=== PATIENT | male | born 2000 | race Caucasian/White ===

== ENCOUNTER 2024-05-15 17:56 | Emergency (ER) | payer BC, SELFPAY ==
[2024-05-15 18:13] VITALS: BMI 35.6
[2024-05-15 18:14] VITALS: BP 145/82; PULSE 81; RESP 17; TEMP 37.1; O2SAT 95
--- NOTE | 2024-05-15 18:28 | XR_ITS ---
Examination: PA lateral chest 2 views TECHNIQUE: Upright PA and lateral chest 2 views Exam date and time: May 15, 2024 1844 hours INDICATIONS: Chest pain and coughing today. FINDINGS: Normal heart size Mild elevation right hemidiaphragm. No pneumonia or pulmonary edema. The osseous structures are intact IMPRESSION: No active disease.
--- NOTE | 2024-05-15 18:30 | PD.EDRME ---
Rapid Medical Screening Exam E Arrival date/time: 05/15/24 17:56 24-year-old male no significant past medical history presents emergency department complaining of cough, fever, shortness of breath, and nausea for over 10 days. Patient reports recently completed oral antibiotic treatment. Patient reports sick contact similar symptoms. Chief Complaint: Shortness of Breath/Dyspnea Time Seen by Provider: 05/15/24 18:05 Vital signs: Vital Signs Temperature 98.7 F 05/15/24 18:14 Pulse Rate 81 05/15/24 18:14 Respiratory Rate 17 05/15/24 18:14 Blood Pressure 145/82 H 05/15/24 18:14 Pulse Oximetry (%) 95 05/15/24 18:14 Oxygen Delivery Method Room Air 05/15/24 18:14 Vital signs reviewed by provider: Yes
[2024-05-15 19:20] LABS: Strep A Rapid Negative (Negative)
--- NOTE | 2024-05-15 19:29 | EDNOTE_ITS ---
Upper Respiratory Inf. RME/HPI General Chief Complaint: Shortness of Breath/Dyspnea Stated Complaint: Fever, SOB, cough, nausea X 12 days Time Seen by Provider: 05/15/24 18:05 Source: patient Arrival date/time: 05/15/24 17:56 24-year-old male no significant past medical history presents emergency department complaining of cough, fever, shortness of breath, and nausea for over 10 days. Patient reports recently completed oral antibiotic treatment. Patient reports sick contact similar symptoms. Mode of arrival: ambulatory Limitations: no limitations RME / HPI RME / HPI Narrative: 05/15/24 17:56 24-year-old male no significant past medical history presents emergency department complaining of cough, fever, shortness of breath, and nausea for over 10 days. Patient reports recently completed oral antibiotic treatment. Patient reports sick contact similar symptoms. Related Data Previous Rx's ?Medication ?Instructions ?Recorded acetaminophen 500 mg capsule 500 mg PO Q6H PRN pain #3 0 caps 05/15/24 albuterol sulfate 90 mcg/actuation 2 puff inhalation Q 6H PRN 05/15/24 aerosol inhaler (Ventolin HFA) shortness of breath or wheezing #6.7 grams ibuprofen 600 mg tablet 600 mg PO Q8H PRN pain #20 t abs 05/15/24 Allergies Allergy/AdvReac Type Severity Reaction Status Date / Time NKA* Allergy Uncoded 12/20/22 09:38 Review of Systems Review of Systems Systems Reviewed: All systems reviewed, normal except as documented Constitutional Constitutional: Reports system reviewed and no additional complaints, except as documented, Denies body ache(s), Denies chills and Reports fever(s) Eyes Eyes: Reports system reviewed and no additional complaints, except as documented and Denies change in vision ENT Ears, Nose, Mouth, and Throat: Reports system reviewed and no additional complaints, except as documented, Denies disequilibrium, Denies dizziness, Denies sore throat and Denies vertigo Cardiovascular Cardiovascular: Reports system reviewed and no additional complaints, except as documented, Denies chest pain and Reports dyspnea Respiratory Respiratory: Reports system reviewed and no additional complaints, except as documented, Denies chest congestion, Reports cough and Reports dyspnea Gastrointestinal Gastrointestinal: Reports system reviewed and no additional complaints, except as documented, Denies abdominal pain, Reports nausea and Denies vomiting Musculoskeletal Musculoskeletal: Reports system reviewed and no additional complaints, except as documented, Denies abnormal gait and Denies arthralgias Integumentary/Breasts Skin/Breast: Reports system reviewed and no additional complaints, except as documented, Denies erythema, Denies rash and Denies wounds Neurologic Neurologic: Reports system reviewed and no additional complaints, except as documented, Denies abnormal gait, Denies disequilibrium, Denies dizziness and Denies vertigo Past Medical History Social History SMOKING STATUS: Former smoker SECOND HAND EXPOSURE: No ED Exam General Limitations: Present no limitations General appearance: Present alert and in no apparent distress Head Head exam: Present atraumatic Eye Eye exam: Present normal appearance, PERRL and EOMI ENT ENT exam: Present normal exam, normal oropharynx and mucous membranes moist Neck Neck exam: Present normal inspection, full ROM and trachea midline Chest Chest inspection: Present normal inspection and symmetric chest wall rise Respiratory Respiratory exam: Present normal lung sounds bilaterally; Absent respiratory distress or wheezes Cardiovascular Cardiovascular exam: Present regular rate, normal rhythm and normal heart sounds Abdominal Exam Abdominal exam: Present soft and normal bowel sounds Extremities Exam Extremities exam: Present normal inspection and full ROM Back Exam Back exam: Present normal inspection and full ROM Neurological Exam Neurological exam: Present alert, oriented X3 and CN II-XII intact Psychiatric Psychiatric exam: Present normal affect and normal mood Skin Skin exam: Present warm, dry, intact and normal color Course Quality Measures none Orders Category Date Time Status Bedside Influenza A&B Antigen Test NOW Care 05/15/24 18:28 Completed XR chest 2V Stat Exams 05/15/24 18:28 Completed Strep A Rapid Stat Lab 05/15/24 18:56 Completed Vital Signs Vital signs: Vital Signs Temperature 98.7 F 05/15/24 18:14 Pulse Rate 81 05/15/24 18:14 Respiratory Rate 17 05/15/24 18:14 Blood Pressure 145/82 H 05/15/24 18:14 Pulse Oximetry (%) 95 05/15/24 18:14 Oxygen Delivery Method Room Air 05/15/24 18:14 95% room air within normal limits Upper Respiratory Infection MDM Narrative MDM Narrative:: 24-year-old male no significant past medical history presents emergency department complaining of cough, fever, shortness of breath, and nausea for over 10 days. Patient reports recently completed oral antibiotic treatment. Patient reports sick contact similar symptoms. No adventitious lung sounds on auscultation. Chest x-ray was unremarkable. Abdomen is soft and nontender. Influenza positive likely the cause of patient's symptoms. Onset greater than 48 hours. Patient stable for discharge instructed to follow-up with primary care provider and return to emergency department for any worsening symptoms or as needed. Patient data External records reviewed:: [facility] previous records Clinical information provided by:: patient Social determinants that could affect healthcare access:: none Patient has the following chronic illnesses:: None How is presenting disease/condition affected by chronic disease/condition?: no chronic disease Evaluation data The following diagnostics were reviewed and interpreted by me:: radiology exam(s) Lab and/or radiology exams considered but not ordered:: Ordered Interpretation Summary: Interpreted by me Medications / Prescriptions Medications or Prescriptions considered but not ordered:: N/A Medication administrations:: N/A Consultations Consultation(s) initiated? (list below): No Diagnosis Upper Respiratory Differential Diagnosis: upper respiratory infection, otitis media, sinusitis, viral infection, bronchitis, influenza and pharyngitis Most likely diagnosis given after review of the tests above:: Influenza Admission Indicated Admission indicated?: not indicated Admission Request Was there a request for admission?: No Disposition Plan Disposition Plan: Discharge Discharge Attestation Discharge Attestation: The patient and all family members were given an opportunity to ask questions and understood the discharge instructions. Discharge instructions specifically effects, indications for sooner follow up or return to the emergency department, and the expected course of current diagnosis. Patient condition: Stable Discharge Plan Plan Patient Disposition: HOME (Self Care) Disposition Comment: Stable Prescriptions/Referrals Prescriptions/Med Rec: New acetaminophen 500 mg capsule 500 mg PO Q6H PRN (Reason: pain) Qty: 30 0RF ibuprofen 600 mg tablet 600 mg PO Q8H PRN (Reason: pain) Qty: 20 0RF albuterol sulfate [Ventolin HFA] 90 mcg/actuation HFA aerosol inhaler 2 puff inhalation Q6H PRN (Reason: shortness of breath or wheezing) Qty: 6.7 0RF No Action flu vacc [id number] 6mos up(PF) 60 mcg (15 mcg x 4)/0.5 mL syringe 0.5 ml IM ONCE Qty: 0.5 0RF Referrals: Hussein Hendrix MD [Primary Care Provider] - In 1 week Problem List Clinical Impression: Influenza Patient/Caregiver Discharge Instructions Discharge Activity: activity as tolerated Education Materials: ED Influenza (Adult) Additional Instructions: Drink plenty of fluids and get plenty of rest. Take Tylenol or ibuprofen as needed for fever or pain. Follow-up with primary care provider in 2 to 3 days. Return to emergency department for any worsening symptoms or as needed. Print Language: Mauritian Stand Alone Forms: Linda Award Info., Work/School Release, Patient Portal Info Letter PA/[employer] PLANS INTELLIGENCE OFFICER Supervising Physician PA/[employer]OC PL[employer] INTE[employer]IGENCE OFFICER Supervising Physician: Dr. Vee
[2024-05-15 19:32] VITALS: BP 159/84; PULSE 78; RESP 18; TEMP 37.3; O2SAT 98
== END 2024-05-15 20:43 | disposition home or self-care (01) ==
PROVIDERS: Emergency Provider Emergency Medicine; PCP Family Medicine
DX: J11.1 Influenza due to unidentified influenza virus with other respiratory manifestations (principal)
CPT/HCPCS: 71046; 87400; 87651; 99283

== ENCOUNTER → 2024-05-18 | Outpatient (BNVA) | payer BC, SELFPAY | END | disposition home or self-care (01) | PROVIDERS: PCP Nurse Practitioner Family; Referring Provider Nurse Practitioner Family; Visit Provider Nurse Practitioner Family | DX: Z09 Encounter for follow-up examination after completed treatment for conditions other than malignant neoplasm (principal) | CPT/HCPCS: 87804; 99212 ==

== ENCOUNTER 2024-07-06 09:30 | Outpatient (RCR) | payer BC, SELFPAY ==
--- NOTE | 2024-06-18 09:39 | PTNOTE_ITS ---
PT OP Initial Eval Patient Information Outpatient Physical Therapy Treatment Date: 06/18/24 Visit Reasons: left ankle pain Medical Diagnosis: Left Ankle Pain Treatment Dx #1: Left Ankle Pain Start of Care: 06/18/24 Smoking Status Smoking Status: Current some day smoker (yes) Cessation Counseling Provided: ARLETTE was advised that quitting smoking is the single most important factor to protect the health of themselves and their family. Discussed the benefits of quitting smoking with patient. Encouraged patient to quit smoking and provided Cessation assistance materials and resources. Tobacco Use: Vapor Cigarette Years smoked: 5 Are you interested in quitting?: No Would you like additional Smoking Cessation Counseling?: No Initial Assessment Subjective: Pt is a 24 y/o male reports of chronic left ankle pain (09/18) after he fell downstairs at work ([employer]) ~ 8 years ago. No imaging has been done. Since incident Pt continues to have pain and swelling in the ankle. Pt has limitation with walking, standing, chores, balance, uneven surfaces, and performing work duties Objective: Left Ankle AROM: all motions are WNL with pain into DF Left Ankle MMTs: grossly 4-/5 except evertors 3+/5 Left Hip MMTs: grossly 3+/5 Assessment: Pt demonstrate left ankle pain leading to difficulty with ADLs. Pt will attempt physical therapy if pain persist Pt will be refer back to provider for further consultation. Short Term and Senior Living Goals 1) Increase left ankle AROM WNL in 6 wks to be able to perform chores 2) Decrease ankle pain to 2/10 in 6 wks to be able to stand and walk more than 30 mins 3) Increase left ankle MMTs grossly 4-/5 in 6 wks to be able to perform recreational activities 4) Indep with HEP Treatment Plan 1) Manual Therapy 2) Therapeutic Activities 3) Therapeutic Exercises 4) Modalities (ice, heat) 5) Balance Training 6) Gait Training Frequency and Duration: 2 x wk for 6 wks Certification Dates: 06/18/24 to 09/18/24 Procedure Charges OP PT Eval Mod Complex 30 minutes: Yes
--- NOTE | 2024-06-26 10:11 | PT.ODAYNRPT ---
PT Outpatient Daily Note OP Daily Note Outpatient Physical Therapy Treatment Date: 06/26/24 Visit Reasons: left ankle pain Subjective: Pt reports mild ankle pain at this time. Objective: Please see flow sheet for ther ex list. Assessment: Pt demonstrates poor activity tolerance due to aggravating symptoms on lateral ankle. Plan: Continue with POC. Length of Time (minutes) of Treatment: 30 Minutes Procedure Charges Therapeutic Exercise 30 minutes: Yes
--- NOTE | 2024-06-28 10:01 | PT.ODAYNRPT ---
PT Outpatient Daily Note OP Daily Note Outpatient Physical Therapy Treatment Date: 06/28/24 Visit Reasons: left ankle pain Subjective: Pt's ankle feels okay. A little sore from last session. Objective: Please see flow chart for list of ther ex performed Assessment: instructed patient on ankle 3 way with TB for HEP at home. Pt demonstrate correctly and safely. Plan: Continue with PT Length of Time (minutes) of Treatment: 30 Minutes Procedure Charges Therapeutic Exercise 30 minutes: Yes
--- NOTE | 2024-07-02 10:40 | PT.ODAYNRPT ---
PT Outpatient Daily Note OP Daily Note Outpatient Physical Therapy Treatment Date: 07/02/24 Visit Reasons: left ankle pain Subjective: Pt reports L ankle is doing ok, mostly just have pain with pointing foot down. Objective: Please see flow sheet for ther ex list. Assessment: Added interventions completed with good tolerance. Plan: Continue with POC. Length of Time (minutes) of Treatment: 30 Minutes Procedure Charges Therapeutic Exercise 30 minutes: Yes
--- NOTE | 2024-07-06 10:13 | PT.ODAYNRPT ---
PT Outpatient Daily Note OP Daily Note Outpatient Physical Therapy Treatment Date: 07/06/24 Visit Reasons: left ankle pain Subjective: Pt reports ankle is doing better, avoids plantarflexion of L ankle to avoid aggravating symptoms. Pt shared he will be going to the beach, hopes he will be able to walk on the beach with no problems. Objective: Please see flow sheet for ther ex list. Assessment: Progression of interventions to work on static and dynamic balance exercises performed with no complaints. Pt demonstrates minimal sway with SLB, no ELECTRIC TAPE SLITTER. Plan: Progress as tolerated. Length of Time (minutes) of Treatment: 30 Minutes Procedure Charges Therapeutic Exercise 30 minutes: Yes
== END 2024-07-09 23:59 | disposition home or self-care (01) ==
LOC: CPTX 09:30
PROVIDERS: PCP Student in an Organized Health Care Education/Training Program; Referring Provider Student in an Organized Health Care Education/Training Program; Visit Provider Student in an Organized Health Care Education/Training Program
DX: M25.572 Pain in left ankle and joints of left foot (principal); R26.2 Difficulty in walking, not elsewhere classified; R26.89 Other abnormalities of gait and mobility; G89.29 Other chronic pain; Z71.6 Tobacco abuse counseling; F17.290 Nicotine dependence, other tobacco product, uncomplicated
CPT/HCPCS: 97110; 97162

== ENCOUNTER 2024-07-20 09:30 | Outpatient (RCR) | payer BC, SELFPAY ==
--- NOTE | 2024-07-16 10:33 | PT.ODAYNRPT ---
PT Outpatient Daily Note OP Daily Note Outpatient Physical Therapy Treatment Date: 07/16/24 Visit Reasons: right ankle pain Subjective: Pt's right ankle is better. Pt mentioned he's been able to walk longer with less pain. Pt is a little sore from this past weekend. Objective: Please see flow chart for list of ther ex performed Assessment: improving with ankle mobility and stability. Pt's dynamic balance is better now while performing lateral stepping on the airex Plan: Continue with PT Length of Time (minutes) of Treatment: 30 Minutes Procedure Charges Therapeutic Exercise 30 minutes: Yes
--- NOTE | 2024-07-20 10:56 | PT.ODS1RPT ---
PT OP Progress/Discharge Note Date of Service: 07/20/24 Progress Note/DC Note Progress Note/Discharge Note: DC Note Patient Information Visit Reasons: right ankle pain Medical Diagnosis: Left Ankle Pain Treatment Dx #1: Left Ankle Pain Service Discharge Date: 07/20/24 Status Subjective: Pt's left ankle pain is about the same. Pt continues to have limitation with walking, standing, balance, chores, and recreational activities. Objective: Left Ankle AROM: all motions are WNL Left ANkle MMTs: grossly 4/5 Left Hip MMTs: grossly 4-/5 Assessment: Pt demonstrate functional left ankle mobility and strength, however, no change in pain leading to difficulty with ADLs. Pt will no longer benefit from physical therapy due to minimal progress towards goals. Pt was instructed on HEP last session and educated to continue exercises to maintain overall mobility. Pt performed all exercises safely, thank you for your referrals. Plan: D/C home with HEP and follow up with MD ROWLAND Procedure Charges Therapeutic Exercise 30 minutes: Yes
== END 2024-08-08 23:59 | disposition home or self-care (01) ==
LOC: CPTX 09:30
PROVIDERS: PCP Student in an Organized Health Care Education/Training Program; Referring Provider Student in an Organized Health Care Education/Training Program; Visit Provider Student in an Organized Health Care Education/Training Program
DX: M25.572 Pain in left ankle and joints of left foot (principal); R26.2 Difficulty in walking, not elsewhere classified; R26.89 Other abnormalities of gait and mobility; G89.29 Other chronic pain
CPT/HCPCS: 97110

== ENCOUNTER → 2025-03-28 | Outpatient (CLI) | payer BC, SELFPAY ==
[2025-03-28 10:30] LABS: Collection Type, Urine Clean Catch; Squamous Epithelial Cell,Urine 0 /hpf (0-5)
[2025-03-28 10:47] LABS: Basophils # (Auto) 0.0 Thou/mm3 (0.0-0.2); Basophils % (Auto) 0 % (0-2.5); Eosinophils # (Auto) 0.1 Thou/mm3 (0.0-0.5); Eosinophils % (Auto) 2 % (0-10); Hematocrit 41.6 % (41.0-53.0); Hemoglobin 14.9 g/dL (13.5-16.0); Immature Granulocytes Auto 0.02 Thou/mm3 (0.00-0.00); Lymphocytes # (Auto) 1.8 Thou/mm3 (1.0-4.8); Lymphocytes % (Auto) 29 % (10-50); Mean Corpuscular HGB Conc 35.8 g/dl (31.0-37.0); Mean Corpuscular Hemoglobin 29.9 pg (25.0-35.0); Mean Corpuscular Volume 84 fL (80-100); Monocytes # (Auto) 0.5 Thou/mm3 (0.0-0.8); Monocytes % (Auto) 8 % (0-12); Neutrophils # (Auto) 3.7 Thou/mm3 (1.8-7.7); Neutrophils % (Auto) 60 % (37-80); Nucleated Red Blood Cell # 0.00 Thou/mm3 (0.00-0.00); Nucleated Red Blood Cell % 0 /100 WBC (0); Platelet Count 266 Thou/mm3 (140-440); RDW Standard Deviation 36.9 fL (35.1-43.9); Red Blood Count 4.98 Miln/mm3 (4.50-5.90); White Blood Count 6.2 Thou/mm3 (3.8-10.6)
[2025-03-28 11:08] LABS: Bilirubin,Urine Negative (Negative); Blood,Urine Negative (Negative); Clarity,Urine Clear (Clear/Hazy); Color,Urine Colorless (Lt Yel-Yel); Culture Indicated,Urine Not Indicated; Glucose, Urine Negative (Negative); Ketones,Urine Negative (Negative); Leukocyte Esterase,Urine Negative (Negative); Nitrite,Urine Negative (Negative); PH,Urine 7.5 (5.0-7.0); Protein,Urine Negative (Neg - Trace); RBC,Urine 1 /hpf (0-3); Specific Gravity,Urine 1.004 (1.001-1.035); Urobilinogen,Urine Negative mg/dL (0.0-1.0); WBC,Urine < 1 /hpf (0-5)
== END | disposition home or self-care (01) ==
PROVIDERS: PCP Nurse Practitioner Family; Referring Provider Nurse Practitioner Family; Visit Provider Nurse Practitioner Family
DX: Z02.0 Encounter for examination for admission to educational institution (principal)
CPT/HCPCS: 36415; 81001; 85025